=== PATIENT | male | born 1935 | race Caucasian/White ===

== ENCOUNTER 2019-04-16 21:30 | Emergency (ER) | payer MEDICARE ==
[~2019-04-16] VITALS: Ht 177.8 cm; Wt 90.7 kg
--- OUTSIDE RECORDS SUMMARY | ~2019-04-16 | XMS | Encounter Summary ---
Demographics + + + | Address | [address] | | | [place] [address] | + + + | Home Phone | | + + + | Preferred Language | Unknown | + + + | Marital Status | | + + + | Judaism Affiliation | Unknown | + + + | Race | Unknown | + + + | Ethnic Group | Unknown | + + + Author + + + | Author | [facility] | | | and Jose Ramonana | + + + | Organization | [facility] | | | and Jose Ramonana | + + + | Address | Unknown | + + + | Phone | Unavailable | + + + Support + + + + + | Name | Relationship | Address | Phone | + + + + + | Santiago Mendez | ECON | [address] | | | | | [place], [place] | | | | | [address] | | + + + + + Care Team Providers + +------+ + | Care Windshield Repair Technician Name | Role | Phone | + +------+ + | Jamel Alexandra NP | PCP | | + +------+ + Encounter Details +--------+ + + + + | Date | Type | Department | Care Team | Description | +--------+ + + + + | 02/07/ | Orders Only | [facility] | Conversion | | | 2010 | | CONVERSION [address]P [address] | Transaction, | | | | | [address] | Provider Unknown | | | | | [place], [place] | [phone] | | | | | [phone] | (Fax) | | | | | [phone] | | | +--------+ + + + + Social History + +-------+ +--------+------+ | Tobacco Use | Types | Packs/Day | Years | Date | | | | | Used | | + +-------+ +--------+------+ | Never Assessed | | | | | + +-------+ +--------+------+ + + + | Sex Assigned at | Date Recorded | | | | + + + | Not on file | | + + + + + + + | Job Start Date | Occupation | Industry | + + + + | Not on file | Not on file | Not on file | + + + + + + + + | Travel History | Travel Start | Travel End | + + + + + + | No recent travel history available. | + + documented as of this encounter Plan of Treatment Not on filedocumented as of this encounter Visit Diagnoses Not on filedocumented in this encounter"
--- OUTSIDE RECORDS SUMMARY | ~2019-04-16 | XMS | Encounter Summary ---
Demographics + + + | Address | [address] | | | [place] [address] | + + + | Home Phone | | + + + | Preferred Language | Unknown | + + + | Marital Status | | + + + | Temple Affiliation | Unknown | + + + | Race | Unknown | + + + | Ethnic Group | Unknown | + + + Author + + + | Author | [facility] | | | and Jose Ramonana | + + + | Organization | [facility] | | | and Jose [...] [place], [place] | | | | | [address] | | + + + + + Care Team Providers + +------+ + | Care Search Director Name | Role | Phone | + +------+ + PCP | Unavailable | + +------+ + Encounter Details +--------+ + + + + | Date | Type | Department | Care Team | Description | +--------+ + + + + | 02/06/ | Imaging | [facility] | [place], | | | 2017 | Exam | [facility] | MD [address] | | | | | IMAGING | [place] | | | | | [phone] | [place] [address] | | +--------+ + + + + Social History + +-------+ +--------+------+ | Tobacco Use | Types | Packs/Day | Years | Date | | | | | Used | | + +-------+ +--------+------+ | Never Smoker | | | | | + +-------+ [...] Not on filedocumented as of this encounter Procedures + +--------+ + + + | Procedure Name | Priori | Date/Time | Associated Diagnosis | Comments | | | ty | | | | + +--------+ + + + | CT HEAD WO CONTRAST | Routin | 02/06/2018 | | Results for this | | | e | 1:40 PM | | procedure are in the | | | | PDT | | results section. | + +--------+ + + + documented in this encounter Results CT Head wo Contrast (02/06/2018 1:40 PM PDT) + + | Specimen | + + | | + + + + + | Narrative | Performed At | + + + | External films for comparison only | [facility] | | | | | No results will be in the chart. | | + + + + +---------+ + + | Performing | Address | City/State/Zipcode | Phone Number | | Organization | | | | + +---------+ + + | [facility] | | | | + +---------+ + + documented in this encounter Visit Diagnoses Not on filedocumented in this encounter"
--- OUTSIDE RECORDS SUMMARY | ~2019-04-16 | XMS | Encounter Summary ---
Demographics + + + | Address | [address] | | | [place] [address] | + + + | Home Phone | | + + + | Preferred Language | Unknown | + + + | Marital Status | | + + + | Gnosticist Affiliation | Unknown | + + + | Race | Unknown | + + + | Ethnic Group | Unknown | + + + Author + + + | Author | [facility] | | | and Jose Ramonana | + + + | Organization | [facility] | | | and Jose Ramonana | + + + | Address | Unknown | + + + | Phone | Unavailable | + + + Support + + + + + | Name | Relationship | Address | Phone | + + + + + | Santiago Mendez | ECON | [address] | | | | | [place], [place] | | | | | [address] | | + + + + + Care Team Providers + +------+ + | Care Label Machine Operator Name | Role | Phone | + [...] Provider Unknown | | | | | [place], [place] | [phone] | | | | | [phone] | (Fax) | | | | | [phone] | | | +--------+ + + + [...]
--- OUTSIDE RECORDS SUMMARY | ~2019-04-16 | XMS | Encounter Summary ---
Demographics + + + | Address | [address] | | | [place] [address] | + + + | Home Phone | | + + + | Preferred Language | Unknown | + + + | Marital Status | | + + + | Holiness Affiliation | Unknown | + + + | Race | Unknown | + + + | Ethnic Group | Unknown | + + + Author + + + | Author | [facility] | | | and Jose Ramonana | + + + | Organization | [facility] | | | and Jose [...] [place], [place] | | | | | [address] | | + + + + + Care Team Providers + +------+ + | Care Neon Electrician Name | Role | Phone | + +------+ + PCP | Unavailable | + +------+ + Encounter Details +--------+ + + + + | Date | Type | Department | Care Team | Description | +--------+ + + + + | 02/06/ | Hospital | [facility] | Conversion | Diagnosis unknown | | 2018 | Encounter | CONVERSION [address] | Transaction, | | | | | [address] | Provider Unknown | | | | | [place] | [phone] | | | | | [address] | | | | | | [phone] | | | +--------+ + + + [...]
--- OUTSIDE RECORDS SUMMARY | ~2019-04-16 | XMS | Clinical Summary ---
Demographics + + + | Address | [address] | | | [place] [address] | + + + | Home Phone | | + + + | Preferred Language | Unknown | + + + | Marital Status | Unknown | + + + | Spiritism Affiliation | Unknown | + + + | Race | Unknown | + + + | Ethnic Group | Unknown | + + + Author + + + | Author | [facility] (Historical as of | | | 12-08-18) | + + + | Organization | [facility] (Historical as of | | | 12-08-18) | + + + | Address | Unknown | + + + | Phone | Unavailable | + + + Support + + +---------+ + | Name | Relationship | Address | Phone | + + +---------+ + | No,Contact | ECON | Unknown | | + + +---------+ + Care Team Providers + +------+ + | Care Lieutenant General Name | Role | Phone | + +------+ + | Michele Mancia DPM | PP | | + +------+ + Allergies No Known Allergies Current Medications + + +--------+---------+------+------+-------+ | Prescription | Sig. | Disp. | Refills | Star | End | Statu | | | | | | t | Date | s | | | | | | Date | | | + + +--------+---------+------+------+-------+ | metformin | Take 500 mg by mouth | | | | | Activ | | (GLUMETZA) 500 MG | 2 (two) times daily | | | | | e | | (MOD) 24 hr tablet | with meals. | | | | | | + + +--------+---------+------+------+-------+ | simvastatin | Take 20 mg by mouth | | | | | Activ | | (ZOCOR) 20 MG tablet | nightly. | | | | | e | + + +--------+---------+------+------+-------+ | lisinopril | Take 10 mg by mouth | | | | | Activ | | (PRINIVIL,ZESTRIL) | daily. | | | | | e | | 10 MG tablet | | | | | | | + + +--------+---------+------+------+-------+ | aspirin 81 MG | Take 81 mg by mouth | | | | | Activ | | tablet | daily. | | | | | e | + + +--------+---------+------+------+-------+ | | Take 1 tablet by | | | | | Activ | | glucosamine-chondroi | mouth 3 (three) | | | | | e | | tin 500-400 MG | times daily. | | | | | | | tablet | | | | | | | + + +--------+---------+------+------+-------+ | Multiple | Take by mouth. | | | | | Activ | | Vitamins-Minerals | | | | | | e | | (CENTRUM SILVER | | | | | | | | ULTRA MENS PO) | | | | | | | + + +--------+---------+------+------+-------+ | topiramate | Start with Topamax | 60 | 1 | 10/1 | | Activ | | (TOPAMAX) 25 MG | 25 mg at night for 7 | tablet | | 7/20 | | e | | tablet | days, followed by | | | 11 | | | | | 25 mg twice daily. | | | | | | + + +--------+---------+------+------+-------+ Active Problems Not on file Family History + + +------+ + | Medical History | Relation | Name | Comments | + + +------+ + | Stroke | Other | | | + + +------+ + + +------+--------+ + | Relation | Name | Status | Comments | + +------+--------+ + | Other | | | | + +------+--------+ + Social History + +-------+ +--------+------+ | Tobacco Use | Types | Packs/Day | Years | Date | | | | | Used | | + +-------+ +--------+------+ | Never Smoker | | | | | + +-------+ +--------+------+ + + +---------+ + | Alcohol Use | Drinks/We | oz/Week | Comments | | | ek | | | + + +---------+ + | Yes | | | | + + +---------+ + + + + | Sex Assigned at | Date Recorded | | | | + + + | Not on file | | + + + Last Filed Vital Signs + + + + | Vital Sign | Reading | Time Taken | + + + + | Blood Pressure | 115/68 | 03/01/2011 11:41 AM PST | + + + + | Pulse | 66 | 03/01/2011 11:41 AM PST | + + + + | Temperature | - | - | + + + + | Respiratory Rate | 12 | 02/07/2011 2:12 PM PDT | + + + + | Oxygen Saturation | - | - | + + + + | Inhaled Oxygen | - | - | | Concentration | | | + + + + | Weight | 88.5 kg (195 lb) | 03/01/2011 11:41 AM PST | + + + + | Height | 177.8 cm (5' 10") | 02/07/2011 2:12 PM PDT | + + + + | Body Mass Index | 27.98 | 03/01/2011 11:41 AM PST | + + + + Plan of Treatment + + + + + | Health Maintenance | Due Date | Last Done | Comments | + + + + + | Vaccine: | | | | | Dtap/Tdap/Td (1 - | 5 | | | | Tdap) | | | | + + + + + | Vaccine: Zoster (1 | | | | | of 2) | 6 | | | + + + + + | Vaccine: Influenza | | 01/13/2017, 01/26/2012 | | | (#1) | 9 | | | + + + + + | Vaccine: | Completed | 03/16/2016, 04/24/2009 | | | Pneumococcal 65+ | | | | | Low/Medium Risk | | | | + + + + + Results Not on filefrom Last 3 Months Insurance + +--------+ +------+-------+ + | Payer | Benefi | Subscriber | Type | Phone | Address | | | t Plan | ID | | | | | | / | | | | | | | Group | | | | | + +--------+ +------+-------+ + | MEDICARE | MEDICA | [id number] | | | [address] | | | RE | | | | [place] [phone] | | | IP-OP | | | | | + +--------+ +------+-------+ + | FIRST CHOICE | FC-MUT | [id number] | | | | | | [place] | | | | | | | [place] | | | | | + +--------+ +------+-------+ + + +--------+ +--------+ + + | Guarantor Name | Accoun | Relation to | Date | Phone | Billing Address | | | t Type | Patient | of | | | | | | | | | | + +--------+ +--------+ + + | CARROLL YANG | Person | Self | [birth year] | 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
--- OUTSIDE RECORDS SUMMARY | ~2019-04-16 | XMS | Clinical Summary ---
Demographics + + + | Address | [address] | | | [place] [address] | + + + | Home Phone | | + + + | Preferred Language | Unknown | + + + | Marital Status | | + + + | Anglican Affiliation | Unknown | + + + | Race | Unknown | + + + | Ethnic Group | Unknown | + + + Author + + + | Author | [facility] | | | and Jose Ramonana | + + + | Organization | [facility] | | | and Jos eRamonana | + + + | Address | Unknown | + + + | Phone | Unavailable | + + + Support + + + + + | Name | Relationship | Address | Phone | + + + + + | Santiago Mendez | ECON | [address] | | | | | [place] | | | | | [address] | | + + + + + Care Team Providers + +------+ + | Care Administrator Of Home Health Name | Role | Phone | + [...] +--------+ +---------+--------+ | MEDICARE | MEDICA | [id number] | | [phone] | | Medica | | | RE | | 001-Pr | 5 | | re | | | PART A | | esent | | | | | | AND B | | | | | | + +--------+ +--------+ +---------+--------+ | AARP | AARP | [id number] | 04/24/19 | [phone] | | Indemn [...] | | al/Fam | | 1935 | [phone] | [place] | | | emma | | | 2 (Home) | [phone] | + +--------+ +--------+ + + Advance Directives + + + + + | Type | Date Recorded | Patient | Explanation | | | | Evp Head Of [employer]g [place] Experience Strategy | | + + + + + | Power of | | | | | Tug Master | | | | + + + + + | Power of | | | | | Tug Master | | | | + + + + + | Advance | | | | | Directive | | | | + + + + + | Advance | | | | | Directive | | | | + + + + +"
--- OUTSIDE RECORDS SUMMARY | ~2019-04-16 | XMS | Clinical Summary ---
Demographics + + + | Address | [address] | | | [place] [address] | + + + | Home Phone | | + + + | Preferred Language | Unknown | + + + | Marital Status | | + + + | Alevism Affiliation | Unknown | + + + | Race | Unknown | + + + | Ethnic Group | Unknown | + + + Author + + + | Author | [facility] | | | and Jose Ramonana | + + + | Organization | [facility] | | | and [...] [place] | | | | | [address] | | + + + + + Care Team Providers + +------+ + | Care Footwear Sales Representative Name | Role | Phone | + [...] +--------+ +---------+--------+ | MEDICARE | MEDICA | [id number] | | [phone] | | Medica | | | RE | | 001-Pr | 5 | | re | | | PART A | | esent | | | | | | AND B | | | | | | + +--------+ +--------+ +---------+--------+ | AARP | AARP | [id number] | 04/24/19 | [phone] | | Indemn [...] | | al/Fam | | 1935 | [phone] | [place] | | | emma | | | 2 (Home) | [address] | + +--------+ +--------+ + + Advance Directives + + + + + | Type | Date Recorded | Patient | Explanation | | | | Phone Technician | | + + + + + | Power of | | | | | Christmas Tree Farm Worker | | | | + + + + + | Power of | | | | | Christmas Tree Farm Worker | | | | + + + + + | Advance | | | | | Directive | | | | + + + + + | Advance | | | | | Directive | | | | + + + + +"
--- OUTSIDE RECORDS SUMMARY | ~2019-04-16 | XMS | Encounter Summary ---
Demographics + + + | Address | [address] | | | [place] [address] | + + + | Home Phone | | + + + | Preferred Language | Unknown | + + + | Marital Status | | + + + | Judaism Affiliation | Unknown | + + + | Race | Unknown | + + + | Ethnic Group | Unknown | + + + Author + + + | Author | [facility] | | | and Jose Ramonana | + + + | Organization | [facility] | | | and Jose Ramonana [...] [place], [place] | | | | | [address] | | + + + + + Care Team Providers + +------+ + | Care Supervisor Bridges And Buildings Name | Role | Phone | + +------+ + PCP | Unavailable | + +------+ + Encounter Details +--------+ + + + + | Date | Type | Department | Care Team | Description | +--------+ + + + + | 02/06/ | Hospital | [facility] | Conversion | Diagnosis unknown | | 2018 | Encounter | CONVERSION [address] | Transaction, | | | | | [address] | Provider Unknown | | | | | [place] | [phone] | | | | | [address] | | | | | | [phone] | | | +--------+ + + + [...]
--- OUTSIDE RECORDS SUMMARY | ~2019-04-16 | XMS | Encounter Summary ---
Demographics + + + | Address | [address] | | | [place] [address] | + + + | Home Phone | | + + + | Preferred Language | Unknown | + + + | Marital Status | | + + + | Gnosticist Affiliation | Unknown | + + + | Race | Unknown | + + + | Ethnic Group | Unknown | + + + Author + + + | Author | [facility] | | | and Jose Ramonana | + + + | Organization | [facility] | | | and Jose [...] [place], [place] | | | | | [address] | | + + + + + Care Team Providers + +------+ + | Care Culinary Arts Instructor Name | Role | Phone | + [...] [address] | | | | | [phone] | [place] [address] | | +--------+ + + + + [...]
--- OUTSIDE RECORDS SUMMARY | ~2019-04-16 | XMS | Clinical Summary ---
Demographics + + + | Address | [address] | | | [place] [address] | + + + | Home Phone | | + + + | Preferred Language | Unknown | + + + | Marital Status | Unknown | + + + | Mandaeism Affiliation | Unknown | + + + | Race | Unknown | + + + | Ethnic Group | Unknown | + + + Author + + + | Author | [facility] (Historical as of | | | 12-08-18) | + + + | Organization | [facility] (Historical as of | | | 12-08-18) [...] Team Providers + +------+ + | Care Ranch Rider Name | Role | Phone | + [...] +------+-------+ + | MEDICARE | MEDICA | [id number] | | | [address] | | | RE | | | | [place] [phone] | | | IP-OP | | | | | + +--------+ +------+-------+ + | FIRST CHOICE | FC-MUT | [id number] | | | | | | [place] | | | | | | | [place] | | | | | + +--------+ [...] | | al/Fam | | 1935 | [phone] | [place] | | | emma | | | [phone]: | [address] | | | | | | | | | | | | | [phone] | | | | | | | [address] | | + +--------+ +--------+ + +
[~2019-04-16 21:30] MED LIST: ACETAMINOPHEN325 M1 PO; ALLOPURINOL300 MG PO; CO Q-10100 MG PO; COUMADIN5 MG PO; GAS RELIEF125 MG PO; GAS RELIEF80 MG PO; LIPITOR40 MG PO; LISINOPRIL20 MG PO; LOMOTIL TABLET1 EACH PO; METFORMIN HCL500 M2 PO; METOPROLOL SUCC25 MG PO; METOPROLOL TART25 MG PO; MIRALAX119 GM PO; MIRALAX17 GM PO; NEURONTIN600 MG PO; NORCO 5-325 TA1 EACH PO; OMEPRAZOLE20 MG PO; OSTEO BI-FLEX1 EAC2 PO; SANDOSTATIN LAR20 M1 IM; VITAMIN B-12500 MCG PO; XARELTO20 MG PO; XERMELO250 MG PO
--- NOTE | 2019-04-16 23:42 | EKG ---
[facility] [address] [place] [address] Signed Normal sinus rhythm Right bundle branch block Abnormal ECG When compared with ECG of 06-FEB-2018 12:43, premature atrial complexes are no longer present Confirmed by FLORIDA TEJADA MD ([id number]) on 04/16/2019 11:42:49 PM Electronically Signed By: FLOR[place] TEJADA MD 04/16/19 2342 PATIENT NAME: TREYCARROLLSarah XIEEN Electrocardiogram DATE OF : 37 PHYSICIAN: FLOR[place] TEJADA MD REPORT #: [id number] REPORT IS CONFIDENTIAL AND NOT TO BE RELEASED WITHOUT AUTHORIZATION
== END 2019-04-16 22:52 | disposition home or self-care (01) ==
LOC: ED 21:30
DX: R55 Syncope and collapse (principal); R07.89 Other chest pain; Z88.2 Allergy status to sulfonamides; Z79.899 Other long term (current) drug therapy; Z79.84 Long term (current) use of oral hypoglycemic drugs; Z79.01 Long term (current) use of anticoagulants
CPT/HCPCS: 71046; 80053; 84484; 85025; 93005; 93010; 99285-25

== ENCOUNTER 2019-05-01 02:46 | Emergency (ER) | payer MEDICARE ==
[~2019-05-01] VITALS: Ht 177.8 cm; Wt 90.7 kg
--- OUTSIDE RECORDS SUMMARY | ~2019-05-01 | XMS | Encounter Summary ---
Demographics + + + | Address | [address] | | | [place] [address] | + + + | Home Phone | | + + + | Preferred Language | Unknown | + + + | Marital Status | | + + + | Scientology Affiliation | Unknown | + + + | Race | Unknown | + + + | Ethnic Group | Unknown | + + + Author + + + | Author | [facility] | | | and Jose Ramonana | + + + | Organization | [facility] | | | and Jose Ramonana [...] [place], [place] | | | | | [address] | | + + + + + Care Team Providers + +------+ + | Care Payroll Examiner Name | Role | Phone | + [...] [address] [facility] | | | | | [phone] | [place] [address] | | +--------+ + + + + [...]
--- OUTSIDE RECORDS SUMMARY | ~2019-05-01 | XMS | Encounter Summary ---
Demographics + + + | Address | [address] | | | [place] [address] | + + + | Home Phone | | + + + | Preferred Language | Unknown | + + + | Marital Status | | + + + | Anglican Affiliation | Unknown | + + + | Race | Unknown | + + + | Ethnic Group | Unknown | + + + Author + + + | Author | [facility] | | | and Jose Ramonana | + + + | Organization | [facility] | | | and Jose Ramonana [...] [place], [place] | | | | | [address] | | + + + + + Care Team Providers + +------+ + | Care Radiology Physician Name | Role | Phone | + [...] Provider Unknown | | | | | [place], [place] | [phone] | | | | | [address] | (Fax) | | | | | [phone] | | | +--------+ + + + [...]
--- OUTSIDE RECORDS SUMMARY | ~2019-05-01 | XMS | Encounter Summary ---
Demographics + + + | Address | [address] | | | [place] [address] | + + + | Home Phone | | + + + | Preferred Language | Unknown | + + + | Marital Status | | + + + | Hinduism Affiliation | Unknown | + + + | Race | Unknown | + + + | Ethnic Group | Unknown | + + + Author + + + | Author | [facility] | | | and Jose Ramonana | + + + | Organization | [facility] | | | and Jose [...] [place], [place] | | | | | [address] | | + + + + + Care Team Providers + +------+ + | Care Safety Security Officer Name | Role | Phone | + +------+ + PCP | Unavailable | + +------+ + Encounter Details +--------+ + + + + | Date | Type | Department | Care Team | Description | +--------+ + + + + | 02/06/ | Hospital | [facility] | Conversion | Diagnosis unknown | | 2018 | Encounter | CONVERSION DEP [address] | Transaction, | | | | | JOYCE PUGH | Provider Unknown | | | | | [place] | [phone] | | | | | [address] | | | | | | [phone] | | | +--------+ + + + [...] + + documented as of this encounter Medications at Time of Discharge + + + +---------+ + + | Medication | Sig | Dispensed | Refills | Start | End Date | | | | | | Date | | + + + +---------+ + + | aspirin (ASPIRIN | Take 81 mg by mouth | | 0 | 02/08/20 | | | LOW DOSE) 81 MG | daily. | | | 11 | | | tablet | | | | | | + + + +---------+ + + | | Take 1 tablet by | | 0 | 02/08/20 | | | glucosamine-chondroi | mouth 3 (three) | | | 11 | | | tin 500-400 MG | times daily. | | | | | | tablet | | | | | | + + + +---------+ + + | lisinopril | Take 10 mg by mouth | | 0 | 02/08/20 | | | (PRINIVIL, ZESTRIL) | daily. | | | 11 | | | 10 mg tablet | | | | | | + + + +---------+ + + | metFORMIN | Take 500 mg by mouth | | 0 | 02/08/20 | | | (GLUMETZA) 500 MG 24 | 2 (two) times daily | | | 11 | | | hr tablet | with meals. | | | | | + + + +---------+ + + | Multiple | Take by mouth. | | 0 | 02/08/20 | | | Vitamins-Minerals | | | | 11 | | | (CENTRUM SILVER | | | | | | | ULTRA MENS PO) | | | | | | + + + +---------+ + + | simvastatin | Take 20 mg by mouth | | 0 | 02/08/20 | | | (ZOCOR) 20 mg tablet | nightly. | | | 11 | | + + + +---------+ + + | topiramate | Start with Topamax | 60 | 1 | 02/08/20 | | | (TOPAMAX) 25 mg | 25 mg at night for 7 | tablet | | 11 | | | tablet | days, followed by | | | | | | | 25 mg twice daily. | | | | | + + + +---------+ + + documented as of this encounter [...] for this | | | e | 3:26 PM | | procedure are in the | | | | PDT | | results section. | + +--------+ + + + documented in this encounter Results CT Head wo Contrast (02/06/2018 3:26 PM PDT) + + | Specimen | + + | | + + + + + | Narrative | Performed At | + + + | This is a non-reportable procedure without a radiologist report and | | | is used for image storage only | | + + + + + | Procedure Note | + + | Jude Healy - 12/05/2018 7:01 AM PDT This is a non-reportable procedure | | without a radiologist report and isused for image storage only | + + documented in this encounter Visit Diagnoses + + | Diagnosis | + + | Diagnosis unknown Other unknown and unspecified cause of morbidity or mortality | + + documented in this encounter"
--- OUTSIDE RECORDS SUMMARY | ~2019-05-01 | XMS | Encounter Summary ---
Demographics + + + | Address | [address] | | | [place] [address] | + + + | Home Phone | | + + + | Preferred Language | Unknown | + + + | Marital Status | | + + + | Sabianism Affiliation | Unknown | + + + | Race | Unknown | + + + | Ethnic Group | Unknown | + + + Author + + + | Author | [facility] | | | and Jose Ramonana | + + + | Organization | [facility] | | | and Jose [...] [place], [place] | | | | | [address] | | + + + + + Care Team Providers + +------+ + | Care Assurance Analyst Name | Role | Phone | + [...] | | | | [facility] | [phone] | | | | | [phone] | | | | | | [phone] | | | +--------+ + + + [...]
--- OUTSIDE RECORDS SUMMARY | ~2019-05-01 | XMS | Clinical Summary ---
Demographics + + + | Address | [address] | | | [place] [address] | + + + | Home Phone | | + + + | Preferred Language | Unknown | + + + | Marital Status | | + + + | Zoroastrianism Affiliation | Unknown | + + + | Race | Unknown | + + + | Ethnic Group | Unknown | + + + Author + + + | Author | [facility] | | | and Jose Ramonana | + + + | Organization | [facility] | | | and Jose Ramonana | + + + | Address | Unknown | + + + | Phone | Unavailable | + + + Support + + + + + | Name | Relationship | Address | Phone | + + + + + | Santiago Mendez | ECON | [address] | | | | | [place] | | | | | [address] | | + + + + + Care Team Providers + +------+ + | Care Professional Engineer Name | Role | Phone | + +------+ + | Jamel Alexandra NP | PCP | | + +------+ + Allergies No Known Allergies Medications + + + +---------+------+------+-------+ | Medication | Sig | Dispensed | Refills | Star | End | Statu | | | | | | t | Date | s | | | | | | Date | | | + + + +---------+------+------+-------+ | Multiple | Take by mouth. | | 0 | 10/1 | | Activ | | Vitamins-Minerals | | | | 7/20 | | e | | (CENTRUM SILVER | | | | 11 | | | | ULTRA MENS PO) | | | | | | | + + + +---------+------+------+-------+ | metFORMIN | Take 500 mg by mouth | | 0 | 10/1 | | Activ | | (GLUMETZA) 500 MG 24 | 2 (two) times daily | | | 720 | | e | | hr tablet | with meals. | | | 11 | | | + + + +---------+------+------+-------+ | simvastatin | Take 20 mg by mouth | | 0 | 10/1 | | Activ | | (ZOCOR) 20 mg tablet | nightly. | | | 720 | | e | | | | | | 11 | | | + + + +---------+------+------+-------+ | lisinopril | Take 10 mg by mouth | | 0 | 10/1 | | Activ | | (PRINIVIL, ZESTRIL) | daily. | | | 7/20 | | e | | 10 mg tablet | | | | 11 | | | + + + +---------+------+------+-------+ | aspirin (ASPIRIN | Take 81 mg by mouth | | 0 | 10/1 | | Activ | | LOW DOSE) 81 MG | daily. | | | 7/20 | | e | | tablet | | | | 11 | | | + + + +---------+------+------+-------+ | | Take 1 tablet by | | 0 | 10/1 | | Activ | | glucosamine-chondroi | mouth 3 (three) | | | 7/20 | | e | | tin 500-400 MG | times daily. | | | 11 | | | | tablet | | | | | | | + + + +---------+------+------+-------+ | topiramate | Start with Topamax | 60 | 1 | 10/1 | | Activ | | (TOPAMAX) 25 mg | 25 mg at night for 7 | tablet | | 720 | | e | | tablet | days, followed by | | | 11 | | | | | 25 mg twice daily. | | | | | | + + + +---------+------+------+-------+ Active Problems Not on file Family History [...] recent travel history available. | + + Last Filed Vital Signs Not on file Plan of Treatment + + + + + | Health Maintenance | Due Date | Last Done | Comments | + + + + + | Vaccine: | | | | | Dtap/Tdap/Td (1 - | 7 | | | | Tdap) | | | | + + + + + | Vaccine: Zoster (1 | | | | | of 2) | 6 | | | + + + + + | Vaccine: | | | | | Pneumococcal 65+ (1 | 1 | | | | of 2 - PCV13) | | | | + + + + + | Vaccine: Influenza | | | | | (#1) | 9 | | | + + + + + Results Not on filefrom Last 3 Months Insurance + +--------+ +--------+ +---------+--------+ | Payer | Benefi | Subscriber | Effect | Phone | Address | Type | | | t Plan | ID | tika | | | | | | / | | Dates | | | | | | Group | | | | | | + +--------+ +--------+ +---------+--------+ | MEDICARE | MEDICA | [id number] | | [phone] | | Medica | | | RE | | 001-Pr | 5 | | re | | | PART A | | esent | | | | | | AND B | | | | | | + +--------+ +--------+ +---------+--------+ | AARP | AARP | [id number] | 04/24/19 | [phone] | | Indemn | | | HEALTH | | 18-Pre | 0 | | ity | | | CARE | | sent | | | | | | OPTION | | | | | | | | [place] | | | | | | | | [place] | | | | | | + +--------+ +--------+ +---------+--------+ + +--------+ +--------+ + + | Guarantor Name | Accoun | Relation to | Date | Phone | Billing Address | | | t Type | Patient | of | | | | | | | | | | + +--------+ +--------+ + + | Chilo Mendez | Person | Self | [birth year] | [address] | | | al/Fam [birth year] | 1935 | [phone] | [place] | | | [place] | | | 2 (Home) | [phone] | + +--------+ +--------+ + + Advance Directives + + + + + | Type | Date Recorded | Patient | Explanation | | | | Roller Man | | + + + + + | Power of | | | | | Quick Technician | | | | + + + + + | Power of | | | | | Quick Technician | | | | + + + + + | Advance | | | | | Directive | | | | + + + + + | Advance | | | | | Directive | | | | + + + + +"
--- OUTSIDE RECORDS SUMMARY | ~2019-05-01 | XMS | Encounter Summary ---
Demographics + + + | Address | [address] | | | [place] [address] | + + + | Home Phone | | + + + | Preferred Language | Unknown | + + + | Marital Status | | + + + | Church Affiliation | Unknown | + + + | Race | Unknown | + + + | Ethnic Group | Unknown | + + + Author + + + | Author | [facility] | | | and Jose Ramonana | + + + | Organization | [facility] | | | and Jose Ramonana | + + + | Address | Unknown | + + + | Phone | Unavailable | + + + Support + + + + + | Name | Relationship | Address | Phone | + + + + + | Santiago Mnedez | ECON | [address] | | | | | [place], [place] | | | | | [address] | | + + + + + Care Team Providers + +------+ + | Care Business Applications Analyst Name | Role | Phone | [...] Provider Unknown | | | | | [place], [place] | [phone] | | | | | [phone] | (Fax) | | | | | [phone] | | | +--------+ + + + [...]
--- OUTSIDE RECORDS SUMMARY | ~2019-05-01 | XMS | Clinical Summary ---
Demographics + + + | Address | [address] | | | [place] [address] | + + + | Home Phone | | + + + | Preferred Language | Unknown | + + + | Marital Status | Unknown | + + + | Spiritism Affiliation | Unknown | + + + | Race | Unknown | + + + | Ethnic Group | Unknown | + + + Author + + + | Author | [facility] (Historical as of | | | 12-08-18) | + + + | Organization | [facility] (Historical as of | | | 12-08-18) [...] Team Providers + +------+ + | Care Tire Service Technician Name | Role | Phone | [...] +------+-------+ + | MEDICARE | MEDICA | [id number] | | | [address] | | | RE | | | | [place] [address] | | | IP-OP | | | | | + +--------+ +------+-------+ + | FIRST CHOICE | FC-MUT | [id number] | | | | | | [place] | | | | | | | [place] | | | | | + +--------+ [...] | | al/Fam | | 1935 | [phone] | [place] | | | emma | | | [phone]: | [phone] | | | | | | | | | | | | | [phone] | | | | | | | [phone] | | + +--------+ +--------+ + +
--- OUTSIDE RECORDS SUMMARY | ~2019-05-01 | XMS | Clinical Summary ---
Demographics + + + | Address | [address] | | | [place] [address] | + + + | Home Phone | | + + + | Preferred Language | Unknown | + + + | Marital Status | Unknown | + + + | Pentecostal Affiliation | Unknown | + + + | Race | Unknown | + + + | Ethnic Group | Unknown | + + + Author + + + | Author | [email or web address] (Historical as of | | | 12-08-18) | + + + | Organization | [email or web address] (Historical as of | | | 12-08-18) [...] Team Providers + +------+ + | Care Pipe Liner Name | Role | Phone | + [...] +------+-------+ + | MEDICARE | MEDICA | [id number] | | | [address] | | | RE | | | | [place] [address] | | | IP-OP | | | | | + +--------+ +------+-------+ + | FIRST CHOICE | FC-MUT | [id number] | | | | | | [place] | | | | | | | [place] | | | | | + +--------+ [...] | | al/Fam | | 1935 | [phone] | [place] | | | emma | | | [phone]: | [phone] | | | | | | | | | | | | | [phone] | | | | | | | [phone] | | + +--------+ +--------+ + +
--- OUTSIDE RECORDS SUMMARY | ~2019-05-01 | XMS | Encounter Summary ---
Demographics + + + | Address | [address] | | | [place] [address] | + + + | Home Phone | | + + + | Preferred Language | Unknown | + + + | Marital Status | | + + + | Rastafarian Affiliation | Unknown | + + + | Race | Unknown | + + + | Ethnic Group | Unknown | + + + Author + + + | Author | [facility] | | | and Jose Ramonana | + + + | Organization | [facility] | | | and [...] [place], [place] | | | | | [address] | | + + + + + Care Team Providers + +------+ + | Care Hospital Clerk Name | Role | Phone | + [...] Collin VICTOR | | | | | [phone] | [place] [address] | | +--------+ + + + + [...]
--- OUTSIDE RECORDS SUMMARY | ~2019-05-01 | XMS | Clinical Summary ---
Demographics + + + | Address | [address] | | | [place] [address] | + + + | Home Phone | | + + + | Preferred Language | Unknown | + + + | Marital Status | | + + + | Yarsanism Affiliation | Unknown | + + + | Race | Unknown | + + + | Ethnic Group | Unknown | + + + Author + + + | Author | [facility] | | | and Jose Ramonana | + + + | Organization | [facility] | | | and [...] [place] | | | | | [address] | | + + + + + Care Team Providers + +------+ + | Care Imaging Aide Name | Role | Phone | + [...] +--------+ +---------+--------+ | MEDICARE | MEDICA | [id number] | | [phone] | | Medica | | | RE | | 001-Pr | 5 | | re | | | PART A | | esent | | | | | | AND B | | | | | | + +--------+ +--------+ +---------+--------+ | AARP | AARP | [id number] | 04/24/19 | [phone] | | Indemn [...] | | al/Fam | | 1935 | [phone] | [place] | | | [place] | | | 2 (Home) | [phone] | + +--------+ +--------+ + + Advance Directives + + + + + | Type | Date Recorded | Patient | Explanation | | | | Inspector Water Pollution Control | | + + + + + | Power of | | | | | Kinesiology Professor | | | | + + + + + | Power of | | | | | Kinesiology Professor | | | | + + + + + | Advance | | | | | Directive | | | | + + + + + | Advance | | | | | Directive | | | | + + + + +"
--- OUTSIDE RECORDS SUMMARY | 2019-05-01 02:48 | XMS ---
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 Vignesh has no Care Guidelines for this patient. [place] [facility] (12 MO.) [facility] NOTE: Visits indicate total known visits. ED[facility] V[place] TRACKING (12 MO.) 05/01/2019 02:47 [facility] [place] TYPE: Emergency COMPLAINT: - NOSE BLEED 04/16/2019 21:[address] 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
[2019-05-01] MEDS ORDERED: AMOXICILLIN500 MG PO (03:17)
== END 2019-05-01 04:00 | disposition home or self-care (01) ==
LOC: ED 02:46
DX: R04.0 Epistaxis (principal); Z88.2 Allergy status to sulfonamides; Z79.899 Other long term (current) drug therapy; Z79.84 Long term (current) use of oral hypoglycemic drugs
CPT/HCPCS: 30901; 99283-25

== ENCOUNTER 2020-08-01 04:00 | Emergency (ER) | payer MEDICARE ==
[~2020-08-01] VITALS: Ht 177.8 cm; Wt 83.9 kg
[~2020-08-01 04:00] MED LIST changes: +AMOXICILLIN500 MG PO
--- OUTSIDE RECORDS SUMMARY | 2020-08-01 04:04 | XMS ---
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 Care History Medical/Surgical 05/01/2019 [facility] Patient seen in ED after hours.\T\nbsp; Left voicemail to follow up with PCP. 05/01/2019 [facility] - Patient is currently established with [facility]. If patient is seen in the ED during business hours. Please contact CHWs at [facility]. Care Recommendation: If this patient has had 5 or more Emergency Department visits in the last 12 months.\T\nbsp; Patient will require education on the scope and purpose of the ED as an acute care provider not a Primary Care Provider and should not be utilized for chronic conditions.\T\nbsp; These are guidelines and the provider should exercise clinical judgment when providing care. E.D. VISIT COUNT (12 MO.) 1 [facility] [place] TOTAL 1 NOTE: Visits indicate total known visits. ED/UCC VISIT TRACKING (12 MO.) 08/01/2020 04:01 [facility] [place] TYPE: Emergency COMPLAINT: - NOSE BLEED INPATIENT VISIT TRACKING (12 MO.) No inpatient visits to display in this time frame [id number]
== END 2020-08-01 07:00 | disposition home or self-care (01) ==
LOC: ED 04:00
DX: R04.0 Epistaxis (principal); Z88.2 Allergy status to sulfonamides; Z79.899 Other long term (current) drug therapy; Z79.84 Long term (current) use of oral hypoglycemic drugs
CPT/HCPCS: 30903; 80053; 85025; 85610; 85730; 99283-25

== ENCOUNTER 2020-09-24 21:08 | Emergency (ER) | payer MEDICARE ==
[~2020-09-24] VITALS: Ht 177.8 cm; Wt 83.9 kg
--- OUTSIDE RECORDS SUMMARY | 2020-09-24 21:10 | XMS ---
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 Care History Medical/Surgical 05/01/2019 [facility] Patient seen in ED after hours.\T\nbsp; Left voicemail to follow up with PCP. 05/01/2019 [facility] - Patient is currently established with [facility]. If patient is seen in the ED during business hours. Please contact CHWs at [facility]. Care Recommendation: If this patient has had 5 or more Emergency Department visits in the last 12 months.\T\nbsp; Patient will require education on the scope and purpose of the ED as an acute care provider not a Primary Care Provider and should not be utilized for chronic conditions.\T\nbsp; These are guidelines and the provider should exercise clinical judgment when providing care. [place] VISIT COUNT (12 MO.) 2 [facility] [place] TOTAL 2 NOTE: Visits indicate total known visits. ED/UCC VISIT TRACKING (12 MO.) 09/24/2020 21:08 [facility] [place] TYPE: Emergency COMPLAINT: - BLOODY NOSE 08/01/2020 04:[address] [facility] [place] TYPE: Emergency COMPLAINT: - NOSE BLEED DIAGNOSES: - Allergy status to sulfonamides - Epistaxis - [facility] (current) use of oral hypoglycemic drugs - Other vp medical (current) drug therapy INPATIENT VISIT TRACKING (12 MO.) No inpatient visits to display in this time frame [id number]
[2020-11-16] MEDS ORDERED: ATORVASTATIN CA40 MG PO (06:11)
== END 2020-09-24 23:48 | disposition home or self-care (01) ==
LOC: ED 21:08
DX: R04.0 Epistaxis (principal); I48.92 Unspecified atrial flutter; Z88.2 Allergy status to sulfonamides; Z79.899 Other long term (current) drug therapy; Z79.84 Long term (current) use of oral hypoglycemic drugs
CPT/HCPCS: 30903; 99283-25

== ENCOUNTER → 2020-11-16 | Emergency (ER) | payer MEDICARE ==
[~2020-11-16] VITALS: Ht 177.8 cm; Wt 86.6 kg
[~2020-11-16] MED LIST changes: +ATORVASTATIN CA40 MG PO
--- OUTSIDE RECORDS SUMMARY | 2020-11-16 05:56 | XMS ---
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 Care History Medical/Surgical 05/01/2019 [facility] Patient seen in ED after hours.\T\nbsp; Left voicemail to follow up with PCP. 05/01/2019 [facility] - Patient is currently established with [facility]. If patient is seen in the ED during business hours. Please contact CHWs at [facility]. Care Recommendation: If this patient has [...] providing care. [place] VISIT COUNT (12 MO.) 3 [facility] [place] TOTAL 3 NOTE: Visits indicate total known visits. ED/UCC VISIT TRACKING (12 MO.) 11/16/2020 05:54 [facility] [place] TYPE: Emergency COMPLAINT: - CHEST PAIN 09/24/2020 21:08 [facility] [place] TYPE: Emergency COMPLAINT: - BLOODY NOSE DIAGNOSES: - Epistaxis - Unspecified atrial flutter - correction (current) use of oral hypoglycemic drugs - Allergy status to sulfonamides - Other long-term (current) drug therapy 08/01/2020 04:01 [facility] [place] TYPE: Emergency COMPLAINT: - NOSE BLEED DIAGNOSES: - Allergy status to sulfonamides - Epistaxis - correction (current) use of oral hypoglycemic drugs - Other long-term (current) drug therapy INPATIENT VISIT TRACKING (12 MO.) No inpatient visits to display in this time frame [id number]
--- NOTE | 2020-11-16 19:55 | EKG ---
[facility] [address] [place] [address] Signed Sinus rhythm with 1st degree AV block with premature atrial complexes Right bundle branch block Abnormal ECG When compared with ECG of 16-APR-2019 21:34, premature atrial complexes are now present Confirmed by CANDY CULVER DO ([id number]) on 11/16/2020 7:54:46 PM Electronically Signed By: CANDY CULVER DO 11/16/201954 PATIENT NAME: CARROLL YANG Electrocardiogram DATE OF : 37 PHYSICIAN: CANDY CULVER DO REPORT #: [id number] REPORT IS CONFIDENTIAL AND NOT TO BE RELEASED WITHOUT AUTHORIZATION
== END ==
LOC: ED 05:53
DX: R07.9 Chest pain, unspecified (principal); I48.92 Unspecified atrial flutter; Z88.2 Allergy status to sulfonamides; Z79.899 Other long term (current) drug therapy; Z79.84 Long term (current) use of oral hypoglycemic drugs
CPT/HCPCS: 71045; 80053; 80500; 83735; 84484; 85025; 93005; 93010; 99285-25

== ENCOUNTER 2020-11-23 06:46 | Emergency (ER) | payer MEDICARE ==
[~2020-11-23] VITALS: Ht 177.8 cm; Wt 86.6 kg
--- OUTSIDE RECORDS SUMMARY | 2020-11-23 06:48 | XMS ---
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 Care History Medical/Surgical 05/01/2019 [facility] Patient seen in ED after hours.\T\nbsp; Left voicemail to follow up with PCP. 05/01/2019 [facility] - Patient is currently established with [facility]. If patient is seen in the ED during business hours. Please contact CHWs at [facility]. Care Recommendation: If this patient has had 5 or more Emergency Department visits in the last 12 months.\T\nbsp; Patient will require education on the scope and purpose of the ED as an acute care provider not a Primary Care Provider and should not be utilized for chronic conditions.\T\nbsp; These are guidelines and the provider should exercise clinical judgment when providing care. [place] VISIT COUNT (12 MO.) 4 [facility] [place] TOTAL 4 NOTE: Visits indicate total known visits. ED/UCC VISIT TRACKING (12 MO.) 11/23/2020 06:47 [facility] [place] TYPE: Emergency COMPLAINT: - CHEST PAIN 11/16/2020 05:54 [facility] [place] TYPE: Emergency COMPLAINT: - CHEST PAIN DIAGNOSES: - Other manager long term care (current) drug therapy - Allergy status to sulfonamides - intermediate designer (current) use of oral hypoglycemic drugs - Unspecified atrial flutter - Chest pain, unspecified 09/24/2020 21:08 [facility] [place] TYPE: Emergency COMPLAINT: - BLOODY NOSE DIAGNOSES: - Epistaxis - Unspecified atrial flutter - intermediate designer (current) use of oral hypoglycemic drugs - Allergy status to sulfonamides - Other [facility] (current) drug therapy 08/01/2020 04:01 [facility] [place] TYPE: Emergency COMPLAINT: - NOSE BLEED DIAGNOSES: - Allergy status to sulfonamides - Epistaxis - [facility] (current) use of oral hypoglycemic drugs - Other [facility] (current) drug therapy INPATIENT VISIT TRACKING (12 MO.) No inpatient visits to display in this time frame [id number]
--- NOTE | 2020-11-24 07:11 | EKG ---
[facility] [address] [place] [address] Signed Sinus bradycardia with 1st degree AV block Right bundle branch block Abnormal ECG When compared with ECG of 16-NOV-2020 05:57, premature atrial complexes are no longer present Confirmed by FLORIDA TEJADA MD ([id number]) on 11/24/2020 7:11:43 AM Electronically Signed By: FLORIDA TEJADA MD 11/24/20 0711 PATIENT NAME: CARROLL YANG Electrocardiogram DATE OF : 37 PHYSICIAN: FLORIDA TEJADA MD REPORT #: [id number] REPORT IS CONFIDENTIAL AND NOT TO BE RELEASED WITHOUT AUTHORIZATION
== END 2020-11-23 10:08 | disposition home or self-care (01) ==
LOC: ED 06:46
DX: R07.89 Other chest pain (principal); I48.92 Unspecified atrial flutter; Z88.2 Allergy status to sulfonamides; Z79.899 Other long term (current) drug therapy; Z79.84 Long term (current) use of oral hypoglycemic drugs
CPT/HCPCS: 71045; 80053; 83735; 84484; 85025; 93005; 93010; 99285-25

== ENCOUNTER 2024-02-04 20:31 | Observation (INO) | payer MEDICARE ==
[~2024-02-04] VITALS: Ht 177.8 cm; Wt 69.5 kg
[~2024-02-04 20:31] MED LIST changes: +XARELTO15 MG PO
[2024-02-04 20:46] LABS: BASOPHILS 0.4 % (0-2); EOSINOPHILS 2.1 % (0-6); HEMATOCRIT 40.4 % (35.0-50.0); HEMOGLOBIN 13.5 g/dL (12.0-18.0); MCH 31.9 (27-36); MCHC 33.5 g/dl (30-36); MCV 95.2 fl (81-99); MONOCYTES 8.3 % (0-12); NEUTROPHILS 79.2 % (39-80); PLATELET COUNT 96 K/uL (140-440); RBC 4.24 M/ul (4.3-5.7); RDW 14.5 (10.5-15.0)
[2024-02-04 20:54] LABS: INR 1.48 (0.80-1.30); PROTIME 17.5 Sec (11.2-14.2)
[2024-02-04 20:56] LABS: PARTIAL THROMBOPLASTIN TIME 33.9 Sec (22.9-41.3)
[2024-02-04 21:06] LABS: ALBUMIN 3.2 g/dL (3.4-5.0); ALBUMIN/GLOBULIN RATIO 0.91 (1.1-2.4); BILIRUBIN, TOTAL 0.5 ng/dL (0.2-1.0); BUN/CREATININE RATIO 25.85 (6.0-28.6); CALCIUM 8.8 mg/dL (8.5-10.1); CREATININE, SERUM 1.47 mg/dL (0.70-1.30); MAGNESIUM 2.1 mg/dL (1.8-2.4); PROTEIN, TOTAL 6.7 g/dL (6.4-8.2)
[2024-02-04] MEDS ORDERED: LACTATED RINGER'S 1,000 ML IV ONE (22:15)
[2024-02-04] MEDS ORDERED: CEFTRIAXONE/SODIUM CHLORIDE 2 GM/100 ML PIGGYBACK IV ONE (23:15)
[2024-02-04] MEDS ORDERED: ondansetron HCL 4 MG/2 ML VIAL IV PRN (23:30)
[2024-02-04] MEDS ORDERED: ACETAMINOPHEN 325 MG TAB PO PRN (23:30)
[2024-02-04] MEDS ORDERED: MORPHINE SULFATE 4 MG/ML VIAL IV PRN (23:30)
[2024-02-04] MEDS ORDERED: PIPERACILLIN/TAZOBACTAM 3.375 GM in DEXTROSE 5% 100 ML IV ONE (23:30)
[2024-02-04] MEDS ORDERED: DEXTROSE 5% 100 ML IV ONE (23:35)
[2024-02-04 23:49] LABS: LACTIC ACID, BLOOD 1.5 mmol/L (0.4-2.0)
[2024-02-05] VITALS (7 sets, daily range): BP systolic 109–126; BP diastolic 45–72
[2024-02-05 00:08] LABS: BILIRUBIN, URINE NEGATIVE (negative); BLOOD/HGB, URINE TRACE-I (Negative); KETONE, URINE NEGATIVE (Negative); LEUK ESTERASE, URINE NEGATIVE (negative); NITRITE, URINE NEGATIVE (negative)
[2024-02-05 00:21] LABS: BACTERIA, URINE NONE SEEN /hpf (negative); CASTS, URINE NONE SEEN \\lpf; COLLECTION TYPE, URINE CLEAN CATCH; CRYSTALS, URINE NONE SEEN (0-1+); EPITHELIAL CELLS, URINE SQUAMOUS 1+ /lpf (0-1+); REFLEX CULTURE, URINE No (No); WHITE BLOOD CELLS, URINE 0-1 /HPF (0-5)
--- NOTE | 2024-02-05 00:52 | NUR ---
0025- admitted to room 111 from ED. Pt alert and oriented. Tried to help with moving from stretcher to bed, unsuccessfully. HOB elevated, on room air at this time, CPOX on at bedside, Tele#[address], AFib rhythm. C/o 10/10 back and frontal area pain from fx ribs. medicated with Morphine 4mg po. Cooperative with admit questions and assessment. Oriented to room and procedures. Pleasant and cooperative. Helped with turning and repositioning.
--- NOTE | 2024-02-05 01:20 | NUR ---
cpox reading 87% on room air, placed on 2L O2 NC, procedure explained to pt
--- NOTE | 2024-02-05 01:41 | NUR ---
Pt states he wants everything to be done to him and he wants to live for a long time. ER in room visiting with pt earlier. Pt wants to be a full code. cpox on at bedside, selwyn 95%, tele#[address], SB 35-55bpm.Resp WNL unlabored, O2 2LNC
--- NOTE | 2024-02-05 03:51 | NUR ---
ON 2L O2 NC, SATS PER BEDSIDE CPOX 100%. TELE#[address] SB P 47, NO DISTRESS NOTED. EYES CLOSED,
[2024-02-05 05:23] LABS: BASOPHILS 0.1 % (0-2); EOSINOPHILS 0.1 % (0-6); HEMATOCRIT 37.7 % (35.0-50.0); HEMOGLOBIN 12.6 g/dL (12.0-18.0); LYMPHOCYTES 4.5 % (24-44); MCH 31.7 (27-36); MCHC 33.4 g/dl (30-36); MONOCYTES 8.5 % (0-12); NEUTROPHILS 86.8 % (39-80); PLATELET COUNT 103 K/uL (140-440); RBC 3.97 M/ul (4.3-5.7); RDW 14.6 (10.5-15.0)
[2024-02-05 05:37] LABS: ALBUMIN 2.9 g/dL (3.4-5.0); ALBUMIN/GLOBULIN RATIO 0.94 (1.1-2.4); ANION GAP 11.1 (7-21); BILIRUBIN, TOTAL 0.7 ng/dL (0.2-1.0); BUN/CREATININE RATIO 23.8 (6.0-28.6); CALCIUM 8.6 mg/dL (8.5-10.1); CREATININE, SERUM 1.47 mg/dL (0.70-1.30); POTASSIUM 5.1 mmol/L (3.5-5.1)
--- NOTE | 2024-02-05 05:45 | NUR ---
Awake, cooperative with cares. O2 titrated to 1LNC, CPOX at bedside. sats 96%. tele#[address] sinus randolph w Pulse 47. tolerated sips of fluid and voided small amounts of yellow urine. no c/o pain at this time.
--- NOTE | 2024-02-05 07:20 | NUR ---
REPORT RECEIVED FROM KAYE VERAS. PT RESTING IN BED WITH EYES CLOSED, RR EVEN AND UNLABORED. CPOX NOTED 100%, HR 49, NC IN PLACE. CALL LIGHT IN REACH.
--- NOTE | 2024-02-05 07:31 | NUR ---
IMAGING ARRIVES FOR REPEAT CXR.
--- NOTE | 2024-02-05 08:20 | EKG ---
[facility] [address] [place] [address] Signed Sinus bradycardia with 1st degree AV block Right bundle branch block Abnormal ECG When compared with ECG of 23-NOV-2020 06:54, No significant change was found Confirmed by Daniella Flaherty MD () on 02/05/2024 8:20:38 AM Electronically Signed By: DANIELLA FLAHERTY MD 02/05/24 0820 PATIENT NAME: CARROLL YANG Electrocardiogram DATE OF : 37 PHYSICIAN: DANIELLA FLAHERTY MD REPORT #: [id number] REPORT IS CONFIDENTIAL AND NOT TO BE RELEASED WITHOUT AUTHORIZATION
--- NOTE | 2024-02-05 08:24 | NUR ---
Board has been updated and call light has been placed within reach
--- NOTE | 2024-02-05 09:18 | NUR ---
INITIAL ASSESSMENT COMPLETE. PT SITS UP IN BED TO DRINK CLEAR LIQUID BREAKFAST. SOME MILD, OCCASIONAL COUGHING NOTED WITH DRINKS, PT REPORTS THROAT STILL FEELS "IRRITATED". DEVIKA RAO ARRIVES TO TAKE PT VITALS AND I&Os. PT EDUCATED ON IS USE. PT DENIES PAIN AT THIS TIME. CHEPE, SOCIAL WORK ARRIVES TO INTERVIEW PT. PT EXPRESSES WANTING TO GO HOME. NO OTHER NEEDS AT THIS TIME, CALL LIGHT IN REACH.
--- NOTE | 2024-02-05 09:36 | NUR ---
DR VALENZUELA ARRIVES TO SPEAK WITH PT. ANSWERS QUESTIONS. PT EXPRESSES AGAIN WANTING TO GO HOME. NO NEEDS AT THIS TIME, CALL LIGHT IN REACH.
[2024-02-05] MEDS ORDERED: PROPRANOLOL HCL60 MG PO (11:00)
[2024-02-05] MEDS ORDERED: GABAPENTIN300 MG PO (11:01)
--- NOTE | 2024-02-05 11:42 | NUR ---
PATIENT ALERT AND ORIENTED SITTING UP IN BED. STATES DEMOGRAPHICS HAVE CHANGED. ADDRESS IS NOW [address] IN [place], [place]. PHONE #[phone]. PCP IS NOW YAMILE KEY AT [facility] IN [place]. STATES HE LIVES IN APARTMENT, NO STAIRS. HE LIVES ALONE. PATIENT HAS NO DME AND REMAINS ABLE TO DRIVE WITHOUT ISSUES. HE IS HAVING DIFFICULTY WITH FOOD COST. STATES HE GOES TO THE FOOD BANK BUT DOES NOT GET ENOUGH FOOD TO SUSTAIN HIM. HE WORKS WITH [employer] FOR [employer]CIAL [employer]. INFORMATION FOR [employer] PROVIDED WELL PHONE NUMBER AND ADDRESS FOR [facility] OFFICE IN [place]. DENIES FURTHER NEEDS AT THIS TIME.
--- NOTE | 2024-02-05 12:01 | NUR ---
ROUND ON PT, PT DENIES ANY PAIN AT THIS TIME. PT SITTING UP IN BED EATING LUNCH AT THIS TIME. EXPRESSES INTEREST IN GOING HOME. CALL LIGHT IN REACH.
[2024-02-05] MEDS ORDERED: PROSCAR5 MG PO (12:15)
[2024-02-05] MEDS ORDERED: FLOMAX0.4 MG PO (12:15)
[2024-02-05] MEDS ORDERED: MYRBETRIQ50 MG PO (12:15)
--- NOTE | 2024-02-05 12:16 | NUR ---
MED REC COMPLETE
--- NOTE | 2024-02-05 13:38 | NUR ---
IV IN LEFT HAND REMOVED, TIP INTACT, GAUZE AND COBAN DRESSING APPLIED TO SITE. PT TOLERATED WELL.
--- NOTE | 2024-02-05 14:05 | NUR ---
UR CLINICAL REVIEW: 2 MN FOR VERSALUS: MEETS OBS CRITERIA MEDICARE OBS 02/04/24 @ 2031 ORDER MATCHES REG NO AUTH REQUIRED PER MEDICARE GUIDELINES DISCHAGE HOME TODAY
--- NOTE | 2024-02-05 14:23 | NUR ---
PT NOT AVAILABLE FOR VISIT. PROVIDED PRAYER.
--- NOTE | 2024-02-05 14:44 | NUR ---
FAMILY X3 IN ROOM. IV IN RLE REMOVED, TIP INTACT, GAUZE AND COBAN DRESSING APPLIED TO SITE. PT ASSISTED TO DRESS IN DISPOSABLE SCRUBS PROVIDED. BELONGINGS GATHERED FOR D/C.
--- NOTE | 2024-02-05 15:27 | NUR ---
DISCUSSED DISCHARGE INSTRUCTIONS WITH PT AND FAMILY, BOTH VERBALIZE UNDERSTANDING. PT LEAVES UNIT VIA WHEELCHAIR ESCORTED TO PRIVATE CAR OF SON.
[2024-02-06] MEDS ORDERED: PHARMACY RENAL DOSE ADJUSTMENT 1 DOSE MISC PO SCH (12:00)
== END 2024-02-05 15:27 | disposition home or self-care (01) ==
LOC: ED 20:31 → MS 20:32 → ED 20:32 → MS 02-05 15:27
PROVIDERS: Internal Medicine; ADMIT Family Medicine; ATTEND Family Medicine
DX: S22.43XA Multiple fractures of ribs, bilateral, initial encounter for closed fracture (principal); S22.069A Unspecified fracture of T7-T8 vertebra, initial encounter for closed fracture; X58.XXXA Exposure to other specified factors, initial encounter; Z88.2 Allergy status to sulfonamides; Z79.84 Long term (current) use of oral hypoglycemic drugs; Z79.01 Long term (current) use of anticoagulants; Z79.899 Other long term (current) drug therapy
CPT/HCPCS: 36415; 51798; 71045; 71250; 80053; 81001; 83605; 83690; 83735; 83880; 84484; 85025; 85610; 85730; 87040; 93005; 93010; 96365; 96374; 99285-25; G0378; J2270; J2543; J7121

== ENCOUNTER 2025-03-12 12:33 | Emergency (ER) | payer MEDICARE, OTHER ==
[~2025-03-12] VITALS: Ht 177.8 cm; Wt 59.8 kg
[~2025-03-12 12:33] MED LIST changes: +FLOMAX0.4 MG PO; +GABAPENTIN300 MG PO; +MYRBETRIQ50 MG PO; +PROPRANOLOL HCL60 MG PO; +PROSCAR5 MG PO
[2025-03-12 13:06] LABS: BLOOD/HGB, URINE LARGE (Negative); KETONE, URINE NEGATIVE (Negative); LEUK ESTERASE, URINE MODERATE (negative); NITRITE, URINE NEGATIVE (negative)
[2025-03-12 13:07] LABS: BACTERIA, URINE NONE SEEN /hpf (negative); CASTS, URINE NONE SEEN \\lpf; CRYSTALS, URINE NONE SEEN (0-1+); EPITHELIAL CELLS, URINE SQUAMOUS 1+ /lpf (0-1+); REFLEX CULTURE, URINE Yes (No)
[2025-03-12 13:44] LABS: BASOPHILS 0.3 % (0.2-1.2); EOSINOPHILS 1.0 % (0.8-7.0); LYMPHOCYTES 10.5 % (21.8-53.1); MCH 30.6 PG (25.7-32.2); MCHC 31.6 g/dL (32.3-36.5); MCV 96.7 fL (79.0-92.2); MONOCYTES 8.9 % (5.3-12.2); NEUTROPHILS 78.8 % (34.0-67.9); RBC 3.99 M/uL (4.63-6.08)
[2025-03-12 14:01] LABS: ALT (SGPT) 10.0 U/L (14-59); AST (SGOT) 11.0 U/L (15-37); GLOMERULAR FILTRATION RATE,EST 44.0 mL/min (>60); PROTEIN, TOTAL 7.9 g/dL (6.4-8.2); UREA NITROGEN 47.0 mg/dL (7-18)
[2025-03-12] MEDS ORDERED: CEFDINIR300 MG PO (15:26)
[2025-03-12 16:35] VITALS: BP 141/66
== END 2025-03-12 16:35 | disposition home or self-care (01) ==
LOC: ED 12:33
PROVIDERS: Emergency Medicine
DX: R31.9 Hematuria, unspecified (principal); Z79.84 Long term (current) use of oral hypoglycemic drugs; Z79.899 Other long term (current) drug therapy; Z88.2 Allergy status to sulfonamides
CPT/HCPCS: 36415; 74177; 80053; 81001; 85025; 87088; 96365; 99284-25; J0696; Q9967